=== PATIENT | male | born 1950 | race Caucasian/White ===

== ENCOUNTER 2024-09-18 11:50 | Inpatient (IN) | payer MEDICARE ==
--- NOTE | 2024-09-18 12:03 | ERPHSYRPT ---
- History of Present Illness Time Seen by Provider: 09/18/24 12:03 Source: patient, family Exam Limitations: no limitations Physician History: This is a 74-year-old white male patient arrives by private vehicle from the patient's primary care office, Dr. Hanson. Per Dr. Hanson, the patient was diagnosed as an outpatient with influenza A. However, the patient wanted to go home and over the last week or so he has not been eating well. He is becoming more weak. He is not drinking well. He had low blood pressure at the doctor's office and complains of shortness of breath. He does not have chest pain or abdominal pain. Patient does have a sql engineer, Dr. Hawk Sung. Patient arrives to the emergency department with a room air oxygen saturation level of 96 to 97% and a blood pressure of 85/59 Timing/Duration: day(s) (Several days), worse Cough Quality/Degree: mild, dry cough Possible Cause: occasional episodes Modifying Factors: Improves With: coughing Associated Symptoms: cough, shortness of breath, other (Weakness) Allergies/Adverse Reactions: No Known Drug Allergies Allergy (Unverified 09/18/24 12:07) Travel Risk - International Travel Have you traveled outside of the country in past 3 weeks: No - Emerging Infectious Disease Are you exhibiting symptoms associated with any current EIDs: Yes Symptoms: Cough: New Onset, Shortness of Breath - Review of Systems Constitutional: Weakness Eyes: No Symptoms Ears, Nose, & Throat: No Symptoms Respiratory: Cough, Dyspnea Cardiac: No Symptoms Abdominal/Gastrointestinal: No Symptoms Genitourinary Symptoms: No Symptoms Musculoskeletal: No Symptoms Skin: No Symptoms Neurological: No Symptoms Psychological: No Symptoms Endocrine: No Symptoms Hematologic/Lymphatic: No Symptoms Immunological/Allergic: No Symptoms All Other Systems: Reviewed and Negative - Past Medical History Pertinent Past Medical History: Yes - Nursing Vital Signs Nursing Vital Signs: Initial Vital Signs Temperature 98.8 F 09/18/24 12:00 Pulse Rate 112 H 09/18/24 12:00 Respiratory Rate 22 09/18/24 12:00 Blood Pressure 85/59 09/18/24 12:00 O2 Sat by Pulse Oximetry 96 09/18/24 12:00 Pain Scale Pain Intensity 2 - Physical Exam General Appearance: mild distress, alert, anxiety, obese Eye Exam: PERRL/EOMI, eyes nml inspection Ears, Nose, Throat Exam: normal ENT inspection, dry mucous membranes Neck Exam: normal inspection, non-tender, supple, full range of motion Respiratory Exam: normal breath sounds, lungs clear, airway intact, No chest tenderness, No respiratory distress Cardiovascular Exam: tachycardia Gastrointestinal/Abdomen Exam: soft, normal bowel sounds, No tenderness Rectal Exam: not done Back Exam: normal inspection, normal range of motion, No CVA tenderness, No vertebral tenderness Extremity Exam: normal inspection, normal range of motion, pelvis stable Neurologic Exam: alert, oriented x 3, cooperative, veneer sawyer II-XII nml as tested, sensation nml Skin Exam: normal color, warm, dry Lymphatic Exam: No adenopathy SpO2 Interpretation: normal O2 Delivery: Room Air - Course Nursing assessment & vital signs reviewed: Yes Ordered Tests: Active Orders 24 hr Category Date Time Status EKG-ER Only STAT Care 09/18/24 12:23 Active IV Insertion STAT Care 09/18/24 12:23 Active Pulse Oximetry (ED) STAT Care 09/18/24 12:23 Active CHEST 1 VIEW (PORTABLE) Stat Exams 09/18/24 12:23 Completed BLOOD CULTURE Stat Lab 09/18/24 12:58 Received CBC W DIFF Stat Lab 09/18/24 12:46 Completed CMP Stat Lab 09/18/24 12:46 Completed Lactic Acid Stat Lab 09/18/24 12:50 Completed MAGNESIUM Stat Lab 09/18/24 12:46 Completed MONO SCREEN Stat Lab 09/18/24 12:46 Completed NT PRO BNPII Stat Lab 09/18/24 12:46 Completed TROPONIN Q4H Lab 09/18/24 12:46 Completed TROPONIN Q4H Lab 09/18/24 16:30 Ordered TROPONIN Q4H Lab 09/18/24 20:30 Ordered Medication Summary Generic Name Dose Route Start Last Admin Trade Name Freq PRN Reason Stop Dose Admin Sodium Chloride 1,000 mls @ 100 mls/hr 09/18/24 12:30 09/18/24 13:04 Sodium Chloride 0.9% 1000 Ml IV 10/18/24 12:29 100 mls/hr .Q10H MISSAEL Administration Discontinued Medications Generic Name Dose Route Start Last Admin Trade Name Freq PRN Reason Stop Dose Admin Sodium Chloride Confirm 09/18/24 12:19 Sodium Chloride 0.9% 1000 Ml Administered 09/18/24 12:20 Dose 1,000 mls @ ud .ROUTE .STK-MED ONE Ceftriaxone Sodium 1 gm in 100 mls @ 200 mls/hr 09/18/24 12:58 09/18/24 13:36 Rocephin 1 Gm / 100 Ml Nacl IV 09/18/24 13:27 Infused STAT ONE Infusion Ceftriaxone Sodium Confirm 09/18/24 13:03 Rocephin 1 Gm / 100 Ml Nacl Administered 09/18/24 13:04 Dose 1 gm in 100 mls @ ud IV .STK-MED ONE Lab/Rad Data: Laboratory Result Diagrams 09/18/24 12:46 09/18/24 12:46 Laboratory Results 09/18/24 09/18/24 09/18/24 Range/Units 13:10 12:50 12:46 WBC (4.23-9.07) x10^3/uL RBC (4.63-6.08) x10^6/uL Hgb (13.7-17.5) g/dL Hct (40.1-51.0) % MCV (79.0-92.2) fL MCH (25.7-32.2) pg MCHC (32.3-36.5) g/dL RDW (11.6-14.4) % Plt Count (163-337) x10^3/uL MPV (9.4-12.4) fL Gran % (34.0-67.9) % Immature Gran % (Auto) (0.001-0.429) % Nucleat RBC Rel Count (0.00-0.2) % Eos # (Auto) (0.04-0.54) x10^3/uL Immature Gran # (Auto) (0.001-0.031) x10^3u/L Absolute Lymphs (auto) (1.32-3.57) x10^3/uL Absolute Monos (auto) (0.30-0.82) x10^3/uL Absolute Nucleated RBC (0.00-0.012) x10^3u/L Lymphocytes % (21.8-53.1) % Monocytes % (5.3-12.2) % Eosinophils % (0.8-7.0) % Basophils % (0.2-1.2) % Absolute Granulocytes (1.78-5.38) x10^3/uL Basophils # (0.01-0.08) x10^3/uL Sodium (135-145) mmol/L Potassium (3.5-5.1) mmol/L Chloride (98-107) mmol/L Carbon Dioxide (22-30) mmol/L Anion Gap (5-15) MEQ/L BUN (9-20) mg/dL Creatinine (0.66-1.25) mg/dL Estimated GFR ML/MIN Glucose (74-106) mg/dL Lactic Acid 1.6 (0.4-2.0) Calcium (8.4-10.2) mg/dL Magnesium (1.6-2.3) mg/dL Total Bilirubin (0.2-1.3) mg/dL AST (17-59) U/L ALT (0-50) U/L Alkaline Phosphatase (38-126) U/L Troponin I (0.000-0.033) ng/mL NT-Pro-B Natriuret Pep (<300) pg/mL Serum Total Protein (6.3-8.2) g/dL Albumin (3.5-5.0) g/dL Monoscreen NEGATIVE (NEGATIVE) Influenza Type A Ag POSITIVE A (NEGATIVE) Influenza Type B Ag NEGATIVE (NEGATIVE) RSV (PCR) NEGATIVE (NEGATIVE) SARS-CoV-2 (PCR) NEGATIVE (NEGATIVE) 09/18/24 09/18/24 09/18/24 Range/Units 12:46 12:46 12:46 WBC 18.4 H (4.23-9.07) x10^3/uL RBC 4.79 (4.63-6.08) x10^6/uL Hgb 14.8 (13.7-17.5) g/dL Hct 43.1 (40.1-51.0) % MCV 90.0 (79.0-92.2) fL MCH 30.9 (25.7-32.2) pg MCHC 34.3 (32.3-36.5) g/dL RDW 12.5 (11.6-14.4) % Plt Count 294 (163-337) x10^3/uL MPV 9.4 (9.4-12.4) fL Gran % 83.2 H (34.0-67.9) % Immature Gran % (Auto) 0.7 H (0.001-0.429) % Nucleat RBC Rel Count 0.0 (0.00-0.2) % Eos # (Auto) 0.05 (0.04-0.54) x10^3/uL Immature Gran # (Auto) 0.12 H (0.001-0.031) x10^3u/L Absolute Lymphs (auto) 1.21 L (1.32-3.57) x10^3/uL Absolute Monos (auto) 1.65 H (0.30-0.82) x10^3/uL Absolute Nucleated RBC 0.00 (0.00-0.012) x10^3u/L Lymphocytes % 6.6 L (21.8-53.1) % Monocytes % 9.0 (5.3-12.2) % Eosinophils % 0.3 L (0.8-7.0) % Basophils % 0.2 (0.2-1.2) % Absolute Granulocytes 15.36 H (1.78-5.38) x10^3/uL Basophils # 0.03 (0.01-0.08) x10^3/uL Sodium 133 L (135-145) mmol/L Potassium 5.5 H (3.5-5.1) mmol/L Chloride 105 (98-107) mmol/L Carbon Dioxide 18 L (22-30) mmol/L Anion Gap 15.5 H (5-15) MEQ/L BUN 26 H (9-20) mg/dL Creatinine 1.22 (0.66-1.25) mg/dL Estimated GFR 63.0 ML/MIN Glucose 103 (74-106) mg/dL Lactic Acid (0.4-2.0) Calcium 8.7 (8.4-10.2) mg/dL Magnesium 1.8 (1.6-2.3) mg/dL Total Bilirubin 1.20 (0.2-1.3) mg/dL AST 178 H (17-59) U/L ALT 209 H (0-50) U/L Alkaline Phosphatase 68 (38-126) U/L Troponin I < 0.012 (0.000-0.033) ng/mL NT-Pro-B Natriuret Pep 726 (<300) pg/mL Serum Total Protein 5.9 L (6.3-8.2) g/dL Albumin 3.2 L (3.5-5.0) g/dL Monoscreen (NEGATIVE) Influenza Type A Ag (NEGATIVE) Influenza Type B Ag (NEGATIVE) RSV (PCR) (NEGATIVE) SARS-CoV-2 (PCR) (NEGATIVE) - Progress Progress: re-examined Air Movement: fair Progress Note: 09/18/24 12:53 My medical decision making and the assignment of moderate to high complexity of this patient's medical issue today is based on review of the patient's past medical history, review the patient's medication list, reviewed patient drug allergy list, history present illness and physical findings on examination. The workup in this patient includes placement of intravenous line, infusion of low rate crystalloid, CBC, CMP, troponin level, BNP, twelve-lead EKG, viral swabs, monotest, chest x-ray. Differential diagnosis includes but is not limited to viral illness, pneumonia, anemia, dehydration, urinary tract infection, electrolyte abnormalities, arrhythmia, myocardial infarction, CHF exacerbation 09/18/24 12:57 The chest x-ray was interpreted by the radiologist and I reviewed the impression. The impression states right infrahilar hazy alveolar opacities, possible pneumonitis or pneumonia. 09/18/24 14:32 I interpreted the patient's laboratory data results. Based on the laboratory data results, the patient again test positive for influenza A infection, and has leukocytosis. I spoke with Dr. Márquez, the telehospitalist on at this time. I reviewed the patient history, presenting complaint, physical findings on examination and w orkup results. We will admit this patient on a telemetry bed. We will hydrate this patient. Blood Culture(s) Obtained: Yes Antibiotics given: Yes Discussed with Dr.: Vera Counseled pt/family regarding: lab results, diagnosis, rad results Medical Desision Making - Independent Historian Additional History obtained from: Spouse - Diagnostic Testing Diagnostic test were ordered, analyzed, and reviewed by me: Yes Radiological Interpretation: Reviewed by me, Teleradiologist Report - Risk of complications The pt has a high risk of morbidity or mortality based on: Decision regarding hospitilization or escalation of hosp level of care - Departure Departure Disposition: In-patient Admission Clinical Impression: Influenza A H1N1 infection, Right pulmonary infiltrate on CXR, Leukocytosis, Hypotension Condition: Fair Critical Care Time: Yes Critical Care Time(excluding separately billable procedures): Critical 30-74 mins (50 minutes) Referrals: MYKE MCBRIDE MD [Primary Care Provider] - Follow up/PCP as directed
[2024-09-18] MEDS ORDERED: Sodium Chloride 0.9% 1000 ML 1,000 ML ONE ×2 (12:19→15:42)
--- NOTE | 2024-09-18 12:51 | XRAY ---
Indication: Cough. Comparison: None Portable chest hyperinflated with right infrahilar hazy interstitial alveolar opacities, possible pneumonitis/pneumonia. Remaining heart and left lung unremarkable. Bony thorax intact with osteopenia.
[2024-09-18 12:56] LABS: Absolute Neutrophil Ct (ANC) 15.36 x10^3/uL (1.78-5.38); BASOPHIL % 0.2 % (0.2-1.2); Basophil (Absolute #) 0.03 x10^3/uL (0.01-0.08); Eosinophil % 0.3 % (0.8-7.0); Eosinophil (Absolute #) 0.05 x10^3/uL (0.04-0.54); Hematocrit 43.1 % (40.1-51.0); Hemoglobin 14.8 g/dL (13.7-17.5); IMMATURE GRAN # 0.12 x10^3u/L (0.001-0.031); IMMATURE GRAN % 0.7 % (0.001-0.429); Lymphocyte (Absolute #) 1.21 x10^3/uL (1.32-3.57); Lymphocytes % 6.6 % (21.8-53.1); Mean Corpuscular Hemoglobin 30.9 pg (25.7-32.2); Mean Corpuscular Hgb Concent. 34.3 g/dL (32.3-36.5); Mean Platelet Volume 9.4 fL (9.4-12.4); Monocyte (Absolute #) 1.65 x10^3/uL (0.30-0.82); Neutrophil % 83.2 % (34.0-67.9); Platelet Count 294 x10^3/uL (163-337); Red Blood Count 4.79 x10^6/uL (4.63-6.08); Red Cell Distribution Width 12.5 % (11.6-14.4); White Blood Count 18.4 x10^3/uL (4.23-9.07)
[2024-09-18] MEDS ORDERED: ROCEPHIN 1 GM / 100 ML NaCl 1 GM/100 ML IVPB IV ONE (13:03)
[2024-09-18] MEDS: ROCEPHIN 1 GM / 100 ML NaCl 1 GM/100 ML IVPB IV ONE (13:04)
[2024-09-18] MEDS: Sodium Chloride 0.9% 1000 ML 1,000 ML IV SCH ×3 (13:04→20:40)
[2024-09-18 13:34] LABS: ALBUMIN 3.2 g/dL (3.5-5.0); ANION GAP 15.5 MEQ/L (5-15); BILIRUBIN,TOTAL 1.2 mg/dL (0.2-1.3); Calcium 8.7 mg/dL (8.4-10.2); Creatinine 1 1.22 mg/dL (0.66-1.25); MAGNESIUM 1.8 mg/dL (1.6-2.3); Potassium 5.5 mmol/L (3.5-5.1); Total Protein 5.9 g/dL (6.3-8.2)
[2024-09-18 13:50] LABS: INFLUENZA B NEGATIVE (NEGATIVE); RESPIRATORY SYNCTIAL VIRUS NEGATIVE (NEGATIVE); SARS-CoV-2 Xpert Express NEGATIVE (NEGATIVE)
[2024-09-18 14:27] LABS: INFLUENZA A POSITIVE (NEGATIVE)
--- NOTE | 2024-09-18 16:54 | PCM.HP ---
History of Present Illness - Chief Complaint Chief Complaint: pneumonia, flu A Date: 09/18/24 History of Present Illness: is a 74 year old male with pmhx of CHF, COPD, HTN, CAD, arrhythmia, and daily smoker. Patient arrives by private vehicle from the patient's primary care office, Dr. Gonzalez. Per Dr. Gonzalez, the patient was diagnosed as an outpatient with influenza A. However, the patient wanted to go home and over the last week or so he has not been eating well. He is becoming more weak. He is not drinking well. He had low blood pressure at the doctor's office and complains of shortness of breath. He does not have chest pain or abdominal holli n. Patient does have a account support analyst, Dr. Jim Sung. Patient arrives to the emergency department with a room air oxygen saturation level of 96 to 97% and a blood pressure of 85/59. Bp increasingly worsened in ER and 2LNS gave without much improvement. On the IP unit pt remains hypotensive. IVF stopped d/t significant heart hx?CF. Pt becoming increasingly SOB. Levophed gtt started. CXR shows pneumonia. WBC 18.4, anion gap 15.5, Co2 18. IV antibiotics, duonebs, advair, steriods, started. Lungs sounds are clear but diminished. Liver enzymes elevated. K+ elevated at 5.5 in ER. Rechecked IP. Pt meets sepsis criteria. - Review of Systems Constitutional: No Fever, No Chills Eyes: No Symptoms Ears, Nose, & Throat: No Symptoms Respiratory: No Cough, No Short Of Breath Cardiac: No Chest Pain, No Edema, No Syncope Abdominal/Gastrointestinal: No Abdominal Pain, No Nausea, No Vomiting, No Diarrhea Genitourinary Symptoms: No Dysuria Musculoskeletal: No Back Pain, No Neck Pain Skin: No Rash Neurological: No Dizziness, No Focal Weakness, No Sensory Changes Psychological: No Symptoms Endocrine: No Symptoms Hematologic/Lymphatic: No Symptoms Immunological/Allergic: No Symptoms Medications & Allergies Home Medications: Home Medication List Atorvastatin Calcium 20 mg PO DAILY 09/18/24 [History Confirmed 09/18/24] Carvedilol [Coreg ] 6.25 mg PO BID 09/18/24 [History Confirmed 09/18/24] Fluticasone/Umeclidin/Vilanter [Trelegy Ellipta 100-62.5-25] 1 each IH DAILY 09/18/24 [History Confirmed 09/18/24] Potassium Chloride [Klor-Con 10] 20 meq BID 09/18/24 [History Confirmed ] Rivaroxaban [Xarelto] 20 mg PO DAILY 09/18/24 [History Confirmed 09/18/24] Sacubitril/Valsartan [Entresto 24 mg-26 mg Tablet] 1 ea DAILY 09/18/24 [History Confirmed 09/18/24] Spironolactone 25 mg [Aldactone 25 MG] 25 mg PO DAILY 09/18/24 [History Confirmed 09/18/24] Allergies/Adverse Reactions: Allergies Allergy/AdvReac Type Severity Reaction Status Date / Time No Known Drug Allergies Allergy Unverified 09/18/24 12:07 - Past Medical History Past Medical History: Yes Cardiac History: Arrhythmia, Coronary Artery Disease, Hypertension Respiratory History: CHF, COPD Comment: a fib - Past Surgical History Past Surgical History: Yes GI Surgical History: Other Musculskeletal Surgical Hx: Orthopedic Surgery Other Surgical History: colon bypass ,elbow surg ,eye surg Significant Family History: heart disease - Social History Smoking Status: Current every day smoker Alcohol: None Drug Use: none - Social Determinants of Health Will the patient participate in the screening: Declined to provide - Physical Exam Vital Signs: Vital Signs - 24 hr Temp Pulse Resp BP BP Pulse Ox 09/18/24 16:20 38 H 83/47 98 09/18/24 16:10 36 H 98/50 98 09/18/24 16:00 22 92/42 88 L 09/18/24 15:50 22 76/51 98 09/18/24 15:40 29 H 78/47 98 09/18/24 15:30 25 H 98 09/18/24 15:20 25 H 88/49 94 L 09/18/24 15:10 25 H 76/47 96 09/18/24 15:08 102 H 19 68/46 98 09/18/24 15:04 107 H 19 77/48 96 09/18/24 15:02 96 H 25 H 72/47 95 09/18/24 15:00 99 H 21 73/39 79 L 09/18/24 14:50 94 H 20 72/49 77 L 09/18/24 14:40 105 H 23 94/67 95 09/18/24 14:30 95 H 29 H 89/55 96 09/18/24 14:20 98 H 26 H 81/61 96 09/18/24 14:10 126 H 22 86/54 98 09/18/24 14:00 109 H 23 91/55 97 09/18/24 13:50 108 H 32 H 87/63 09/18/24 13:41 103 H 30 H 66/33 95 09/18/24 13:30 78/57 09/18/24 13:20 102 H 36 H 85/60 95 09/18/24 13:10 105 H 25 H 82/65 98 09/18/24 13:01 98 H 37 H 85/55 98 09/18/24 13:00 105 H 24 99 09/18/24 12:53 114 H 32 H 96 09/18/24 12:33 96 09/18/24 12:31 101 H 35 H 96/62 95 09/18/24 12:00 98.8 F 112 H 22 85/59 96 General Appearance: no apparent distress, alert Neurologic Exam: alert, oriented x 3, cooperative, normal mood/affect, nml cerebellar function, nml station & gait, sensation nml, No motor deficits Eye Exam: PERRL/EOMI, eyes nml inspection Ears, Nose, Throat Exam: normal ENT inspection, TMs normal, pharynx normal, moist mucous membranes Neck Exam: normal inspection, non-tender, supple, full range of motion Respiratory Exam: normal breath sounds, lungs clear, No respiratory distress Cardiovascular Exam: regular rate/rhythm, normal heart sounds, normal peripheral pulses Gastrointestinal/Abdomen Exam: soft, normal bowel sounds, No tenderness, No mass Back Exam: normal inspection, normal range of motion, No CVA tenderness, No vertebral tenderness Extremity Exam: normal inspection, normal range of motion, pelvis stable Skin Exam: normal color, warm, dry, No rash Lymphatic Exam: No adenopathy Results - Labs Lab/Micro Results: Lab Results-Last 24 Hours 09/18/24 09/18/24 09/18/24 Range/Units 12:46 12:46 12:46 WBC 18.4 H (4.23-9.07) x10^3/uL RBC 4.79 (4.63-6.08) x10^6/uL Hgb 14.8 (13.7-17.5) g/dL Hct 43.1 (40.1-51.0) % MCV 90.0 (79.0-92.2) fL MCH 30.9 (25.7-32.2) pg MCHC 34.3 (32.3-36.5) g/dL RDW 12.5 (11.6-14.4) % Plt Count 294 (163-337) x10^3/uL MPV 9.4 (9.4-12.4) fL Gran % 83.2 H (34.0-67.9) % Immature Gran % (Auto) 0.7 H (0.001-0.429) % Nucleat RBC Rel Count 0.0 (0.00-0.2) % Eos # (Auto) 0.05 (0.04-0.54) x10^3/uL Immature Gran # (Auto) 0.12 H (0.001-0.031) x10^3u/L Absolute Lymphs (auto) 1.21 L (1.32-3.57) x10^3/uL Absolute Monos (auto) 1.65 H (0.30-0.82) x10^3/uL Absolute Nucleated RBC 0.00 (0.00-0.012) x10^3u/L Lymphocytes % 6.6 L (21.8-53.1) % Monocytes % 9.0 (5.3-12.2) % Eosinophils % 0.3 L (0.8-7.0) % Basophils % 0.2 (0.2-1.2) % Absolute Granulocytes 15.36 H (1.78-5.38) x10^3/uL Basophils # 0.03 (0.01-0.08) x10^3/uL Sodium 133 L (135-145) mmol/L Potassium 5.5 H (3.5-5.1) mmol/L Chloride 105 (98-107) mmol/L Carbon Dioxide 18 L (22-30) mmol/L Anion Gap 15.5 H (5-15) MEQ/L BUN 26 H (9-20) mg/dL Creatinine 1.22 (0.66-1.25) mg/dL Estimated GFR 63.0 ML/MIN Glucose 103 (74-106) mg/dL Lactic Acid (0.4-2.0) Calcium 8.7 (8.4-10.2) mg/dL Magnesium 1.8 (1.6-2.3) mg/dL Total Bilirubin 1.20 (0.2-1.3) mg/dL AST 178 H (17-59) U/L ALT 209 H (0-50) U/L Alkaline Phosphatase 68 (38-126) U/L Troponin I < 0.012 (0.000-0.033) ng/mL NT-Pro-B Natriuret Pep 726 (<300) pg/mL Serum Total Protein 5.9 L (6.3-8.2) g/dL Albumin 3.2 L (3.5-5.0) g/dL Monoscreen (NEGATIVE) Influenza Type A Ag (NEGATIVE) Influenza Type B Ag (NEGATIVE) RSV (PCR) (NEGATIVE) SARS-CoV-2 (PCR) (NEGATIVE) 09/18/24 09/18/24 09/18/24 Range/Units 12:46 12:50 13:10 WBC (4.23-9.07) x10^3/uL RBC (4.63-6.08) x10^6/uL Hgb (13.7-17.5) g/dL Hct (40.1-51.0) % MCV (79.0-92.2) fL MCH (25.7-32.2) pg MCHC (32.3-36.5) g/dL RDW (11.6-14.4) % Plt Count (163-337) x10^3/uL MPV (9.4-12.4) fL Gran % (34.0-67.9) % Immature Gran % (Auto) (0.001-0.429) % Nucleat RBC Rel Count (0.00-0.2) % Eos # (Auto) (0.04-0.54) x10^3/uL Immature Gran # (Auto) (0.001-0.031) x10^3u/L Absolute Lymphs (auto) (1.32-3.57) x10^3/uL Absolute Monos (auto) (0.30-0.82) x10^3/uL Absolute Nucleated RBC (0.00-0.012) x10^3u/L Lymphocytes % (21.8-53.1) % Monocytes % (5.3-12.2) % Eosinophils % (0.8-7.0) % Basophils % (0.2-1.2) % Absolute Granulocytes (1.78-5.38) x10^3/uL Basophils # (0.01-0.08) x10^3/uL Sodium (135-145) mmol/L Potassium (3.5-5.1) mmol/L Chloride (98-107) mmol/L Carbon Dioxide (22-30) mmol/L Anion Gap (5-15) MEQ/L BUN (9-20) mg/dL Creatinine (0.66-1.25) mg/dL Estimated GFR ML/MIN Glucose (74-106) mg/dL Lactic Acid 1.6 (0.4-2.0) Calcium (8.4-10.2) mg/dL Magnesium (1.6-2.3) mg/dL Total Bilirubin (0.2-1.3) mg/dL AST (17-59) U/L ALT (0-50) U/L Alkaline Phosphatase (38-126) U/L Troponin I (0.000-0.033) ng/mL NT-Pro-B Natriuret Pep (<300) pg/mL Serum Total Protein (6.3-8.2) g/dL Albumin (3.5-5.0) g/dL Monoscreen NEGATIVE (NEGATIVE) Influenza Type A Ag POSITIVE A (NEGATIVE) Influenza Type B Ag NEGATIVE (NEGATIVE) RSV (PCR) NEGATIVE (NEGATIVE) SARS-CoV-2 (PCR) NEGATIVE (NEGATIVE) - Radiology Impressions Radiology Exams & Impressions: Radiology Procedures Category Date Time Status CHEST 1 VIEW (PORTABLE) Stat Exams 09/18/24 12:23 Completed Assessment/Plan (1) Sepsis Current Visit: Yes Status: Acute Assessment & Plan: - RR> 20, HR > 90, WBC> 12, PCO2 < 32 - 2lNS gave in ER- Pt has CHF hx - lactate acid 1.6 - hypotension - + pneumonia and Flu A - BC X2 pending - Levophed Gtt - Tele - ICU (2) Pneumonia Current Visit: Yes Status: Acute Assessment & Plan: - CXR: Portable chest hyperinflated with right infrahilar hazy interstitial alveolar opacities, possible pneumonitis/pneumonia. Remaining heart and left lung unremarkable. Bony thorax intact with osteopenia. - Ceftriaxone started in ER - Ceftriaxone, azithromycin, duonebs, advair, steroids - CBC, CMP reviewed - BC x2 - O2 98% - WBC 18.4 Code(s): J18.9 - PNEUMONIA, UNSPECIFIED ORGANISM (3) Hypotension Current Visit: Yes Status: Acute Assessment & Plan: - BP remains low on admission - ICU tele - Pt now on 3rd bag of IVF- watch for fluid overload as he has CHF. - fluids stopped - Home BP meds held. - 2:2 sepsis from pneumonia - Persistent hypotension despite IV fluids - started Levophed gtt Code(s): I95.9 - HYPOTENSION, UNSPECIFIED (4) Influenza A H1N1 infection Current Visit: Yes Status: Acute Assessment & Plan: - tamiflu not ordered as it has been over 1 week now with sxs Code(s): J10.1 - FLU DUE TO OTH IDENT INFLUENZA VIRUS W OTH RESP MANIFEST (5) Transaminitis Current Visit: Yes Status: Acute Assessment & Plan: - AST 178, ALT 209 - IVF- stop - Likely 2:2 CHF Code(s): R74.01 - ELEVATION OF LEVELS OF LIVER TRANSAMINASE LEVELS (6) Hyperkalemia Current Visit: Yes Status: Acute Assessment & Plan: - K+ 5.5 in ER - IVF gave in ER- stopped - recheck IP - 4.9 trending down - tele - oral home dose of K+ held Code(s): E87.5 - HYPERKALEMIA (7) Dehydration Current Visit: Yes Status: Acute Assessment & Plan: -anion gap 15.5- trend - IVF NS @ 100ml/hr- stopped IP - 2 L NS IVF gave in ER- 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
[2024-09-18] MEDS ORDERED: FLUTICASONE-SALMETEROL 250-50 IH ONE (17:39)
[2024-09-18 17:40] LABS: MAGNESIUM 1.7 mg/dL (1.6-2.3); Potassium 4.9 mmol/L (3.5-5.1)
[2024-09-18] MEDS: DUONEB 0.5-3 MG/3 ml Neb IH SCH (17:43)
[2024-09-18] MEDS: Zithromax 500 MG/ 250 ML NaCl Premix 500 MG/250 ML IVPB IV SCH (17:51)
[2024-09-18] MEDS: Nicoderm CQ 21 MG TOP SCH (17:52)
[2024-09-18] MEDS: Protonix 20MG Tablet PO SCH (17:52)
[2024-09-18] MEDS: NOREPINEPHRINE 8 MG/250 ML-D5W 8 MG/250 ML PLAST..BAG IV PRN (17:53)
[2024-09-18] MEDS ORDERED: Advair Hfa 115/21 Common canister IH SCH (19:00)
[2024-09-18] MEDS ORDERED: solu-MEDROL ONE (20:51)
[2024-09-18] MEDS ORDERED: Sterile H2O 10 ml IJ ONE (20:51)
[2024-09-18] MEDS: solu-MEDROL 40 MG, Sterile H2O 10 ml 1 ML IV SCH (20:57)
[2024-09-18] MEDS: XARELTO 10 MG TABLET PO SCH (20:57)
[2024-09-18] MEDS ORDERED: Tamiflu 75MG Capsule PO SCH (22:00)
[2024-09-19 04:42] LABS: Absolute Neutrophil Ct (ANC) 14.07 x10^3/uL (1.78-5.38); BASOPHIL % 0.1 % (0.2-1.2); Basophil (Absolute #) 0.02 x10^3/uL (0.01-0.08); Eosinophil % 0.1 % (0.8-7.0); Eosinophil (Absolute #) 0.01 x10^3/uL (0.04-0.54); Hematocrit 42.8 % (40.1-51.0); Hemoglobin 14.9 g/dL (13.7-17.5); IMMATURE GRAN # 0.14 x10^3u/L (0.001-0.031); IMMATURE GRAN % 0.9 % (0.001-0.429); Lymphocyte (Absolute #) 0.74 x10^3/uL (1.32-3.57); Lymphocytes % 4.8 % (21.8-53.1); Mean Cell Volume 89.9 fL (79.0-92.2); Mean Corpuscular Hemoglobin 31.3 pg (25.7-32.2); Mean Corpuscular Hgb Concent. 34.8 g/dL (32.3-36.5); Mean Platelet Volume 9.6 fL (9.4-12.4); Monocyte (Absolute #) 0.29 x10^3/uL (0.30-0.82); Monocytes % 1.9 % (5.3-12.2); Neutrophil % 92.2 % (34.0-67.9); Platelet Count 362 x10^3/uL (163-337); Red Blood Count 4.76 x10^6/uL (4.63-6.08); Red Cell Distribution Width 12.6 % (11.6-14.4); White Blood Count 15.3 x10^3/uL (4.23-9.07)
[2024-09-19 05:02] LABS: ALBUMIN 2.8 g/dL (3.5-5.0); ANION GAP 15.8 MEQ/L (5-15); BILIRUBIN,TOTAL 1.1 mg/dL (0.2-1.3); Calcium 8.3 mg/dL (8.4-10.2); Creatinine 1 0.86 mg/dL (0.66-1.25); Total Protein 5.5 g/dL (6.3-8.2)
[2024-09-19] MEDS: Sodium Bicarbonate 50 MEQ/50 ML VIAL*** 150 MEQ in Dextrose 5%/Water IV Soln. 1000 ML 1... IV SCH (08:55)
[2024-09-19] MEDS: ROCEPHIN 1 GM / 100 ML NaCl 1 GM/100 ML IVPB IV SCH (09:03)
[2024-09-19] MEDS: ENTRESTO 49 MG-51 MG TABLET PO SCH (09:05)
[2024-09-19] MEDS ORDERED: NON-FORMULARY ITEM (Fluticasone/Umeclidin/Vilanter [Trelegy Ellipta 100-62.5-25] 1 EACH Bl IH SCH (10:00)
[2024-09-19] MEDS ORDERED: XARELTO 10 MG TABLET PO SCH (10:00)
[2024-09-19] MEDS: PATIENT OWN MEDICATION IH SCH (10:28)
--- NOTE | 2024-09-19 12:43 | PCM.NOTE ---
Date and Time: 09/19/24 1240 Subjective Assessment: 09/18/24 is a 74 year old male with pmhx of CHF, COPD, HTN, CAD, arrhythmia, and daily smoker. Patient arrives by private vehicle from the patient's primary care office, Dr. Gonzalez. Per Dr. Gonzalez, the patient was diagnosed as an outpatient with influenza A. However, the patient wanted to go home and over the last week or so he has not been eating well. He is becoming more weak. He is not drinking well. He had low blood pressure at the doctor's office and complains of shortness of breath. He does not have chest pain or abdominal pain. Patient does have a welcome desk agent, Dr. Jim Sung. Patient arrives to the emergency department with a room air oxygen saturation level of 96 to 97% and a blood pressure of 85/59. Bp increasingly worsened in ER and 2LNS gave without much improvement. On the IP unit pt remains hypotensive. IVF stopped d/t significant heart hx?CF. Pt becoming increasingly SOB. Levophed gtt started. CXR shows pneumonia. WBC 18.4, anion gap 15.5, Co2 18. IV antibiotics, duonebs, advair, steriods, started. Lungs sounds are clear but diminished. Liver enzymes elevated. K+ elevated at 5.5 in ER. Rechecked IP. Pt meets sepsis criteria. 09/19/24 Pt resting in bed. He remains on Levophed this morning. CO2 13- bicarb gtt started. Continue IV antibiotics, duonebs, advair, steriods for pneumonia. He is RA 96%. BC X2 pending. Advair d/c'd last night as pt wants to use his home inhaler of Trelegy- to bring in to use. Pt denies CP, abd. pain, N/V. He states he has had diarrhea and probiotics started. - Review of Systems Constitutional: Malaise, Weakness, No Fever, No Chills Eyes: No Symptoms Ears, Nose, & Throat: No Symptoms Respiratory: No Cough, No Short Of Breath Cardiac: No Chest Pain, No Edema, No Syncope Abdominal/Gastrointestinal: No Abdominal Pain, No Nausea, No Vomiting, No Diarrhea Genitourinary Symptoms: No Dysuria Musculoskeletal: No Back Pain, No Neck Pain Skin: No Rash Neurological: No Dizziness, No Focal Weakness, No Sensory Changes Psychological: No Symptoms Endocrine: No Symptoms Hematologic/Lymphatic: No Symptoms Immunological/Allergic: No Symptoms Objective Exam General Appearance: no apparent distress, alert, obese Neurologic Exam: alert, oriented x 3, cooperative, normal mood/affect, nml c erebellar function, sensation nml, No motor deficits Skin Exam: normal color, warm, dry Eye Exam: PERRL, EOMI, eyes nml inspection Ears, Nose, Throat Exam: normal ENT inspection, pharynx normal, moist mucous membranes Neck Exam: normal inspection, non-tender, supple, full range of motion Respiratory Exam: normal breath sounds, lungs clear, No respiratory distress Cardiovascular Exam: regular rate/rhythm, normal heart sounds Gastrointestinal/Abdomen Exam: soft, distention, No tenderness, No mass Extremity Exam: normal inspection, normal range of motion Back Exam: normal inspection, normal range of motion, No CVA tenderness, No vertebral tenderness Male Genitalia Exam: deferred Rectal Exam: deferred Objective Data Vital Signs: Vital Signs - 24 hr Temp Pulse Resp BP BP Pulse Ox 09/19/24 12:00 89 09/19/24 11:36 89 18 98 09/19/24 11:31 120 H 18 113/71 09/19/24 11:10 90 19 126/69 09/19/24 11:02 97 H 24 09/19/24 10:31 86 25 H 147/77 09/19/24 10:01 98 H 28 H 122/86 09/19/24 09:31 98 H 25 H 145/102 09/19/24 09:01 115 H 24 132/76 09/19/24 08:50 100 H 09/19/24 08:31 100 H 20 134/80 09/19/24 08:01 91 H 34 H 102/74 98 09/19/24 07:39 88 16 97 09/19/24 07:31 98 H 16 136/86 100 09/19/24 07:00 81 23 120/97 98 09/19/24 06:31 79 19 115/82 97 09/19/24 06:00 81 16 116/84 96 09/19/24 05:55 81 20 114/83 98 09/19/24 05:01 79 20 117/90 98 09/19/24 04:30 80 19 130/80 98 09/19/24 04:00 96.4 F 84 24 126/84 98 09/19/24 03:32 75 20 127/63 97 09/19/24 03:00 91 H 19 104/75 97 09/19/24 02:30 79 26 H 105/68 95 09/19/24 02:00 82 28 H 110/67 94 L 09/19/24 01:30 85 28 H 103/64 94 L 09/19/24 01:00 81 26 H 96/66 93 L 09/19/24 00:30 81 30 H 103/71 93 L 09/19/24 00:01 97.6 F 97 H 26 H 115/66 94 L 09/18/24 23:40 91 H 09/18/24 23:32 92 H 29 H 109/74 96 09/18/24 23:00 90 26 H 90/64 94 L 09/18/24 22:30 87 33 H 104/66 94 L 09/18/24 22:00 91 H 26 H 102/76 94 L 09/18/24 21:30 84 24 119/75 94 L 09/18/24 21:01 99 H 22 105/79 98 09/18/24 20:30 97 H 16 105/62 100 09/18/24 20:00 98 H 32 H 97/78 09/18/24 19:27 97.7 F 108 H 34 H 114/75 95 09/18/24 19:25 98 H 09/18/24 19:01 100 H 19 82/52 97 09/18/24 18:32 99.1 F 90 22 93/38 96 09/18/24 18:01 99.1 F 100 H 18 84/63 97 09/18/24 17:52 85 36 H 96 09/18/24 17:30 100 H 33 H 78/56 98 09/18/24 17:23 96 09/18/24 17:17 93 H 22 79/44 97 09/18/24 17:00 99.1 F 78 25 H 85/51 96 09/18/24 16:51 98 H 21 85/51 99 09/18/24 16:50 94 H 26 H 97 09/18/24 16:48 97 09/18/24 16:31 84/52 09/18/24 16:20 38 H 83/47 98 09/18/24 16:10 36 H 98/50 98 09/18/24 16:00 22 92/42 88 L 09/18/24 15:50 22 76/51 98 09/18/24 15:40 29 H 78/47 98 09/18/24 15:30 25 H 98 09/18/24 15:20 25 H 88/49 94 L 09/18/24 15:10 25 H 76/47 96 09/18/24 15:08 102 H 19 68/46 98 09/18/24 15:04 107 H 19 77/48 96 09/18/24 15:02 96 H 25 H 72/47 95 09/18/24 15:00 99 H 21 73/39 79 L 09/18/24 14:50 94 H 20 72/49 77 L 09/18/24 14:40 105 H 23 94/67 95 09/18/24 14:30 95 H 29 H 89/55 96 09/18/24 14:20 98 H 26 H 81/61 96 09/18/24 14:10 126 H 22 86/54 98 09/18/24 14:00 109 H 23 91/55 97 09/18/24 13:50 108 H 32 H 87/63 09/18/24 13:41 103 H 30 H 66/33 95 09/18/24 13:30 78/57 09/18/24 13:20 102 H 36 H 85/60 95 09/18/24 13:10 105 H 25 H 82/65 98 09/18/24 13:01 98 H 37 H 85/55 98 09/18/24 13:00 105 H 24 99 09/18/24 12:53 114 H 32 H 96 Pain Assessment - Last Documented Pain Intensity 0 Intake and Output: Intake & Output 09/17/24 09/18/24 09/19/24 09/20/24 11:59 11:59 11:59 11:59 Intake Total 1513 Output Total 475 Balance 1038 Weight 92.4 kg Lab Results: Lab Results-Last 24 Hours 09/18/24 09/18/24 09/18/24 Range/Units 12:46 12:46 12:46 WBC 18.4 H (4.23-9.07) x10^3/uL RBC 4.79 (4.63-6.08) x10^6/uL Hgb 14.8 (13.7-17.5) g/dL Hct 43.1 (40.1-51.0) % MCV 90.0 (79.0-92.2) fL MCH 30.9 (25.7-32.2) pg MCHC 34.3 (32.3-36.5) g/dL RDW 12.5 (11.6-14.4) % Plt Count 294 (163-337) x10^3/uL MPV 9.4 (9.4-12.4) fL Gran % 83.2 H (34.0-67.9) % Immature Gran % (Auto) 0.7 H (0.001-0.429) % Nucleat RBC Rel Count 0.0 (0.00-0.2) % Eos # (Auto) 0.05 (0.04-0.54) x10^3/uL Immature Gran # (Auto) 0.12 H (0.001-0.031) x10^3u/L Absolute Lymphs (auto) 1.21 L (1.32-3.57) x10^3/uL Absolute Monos (auto) 1.65 H (0.30-0.82) x10^3/uL Absolute Nucleated RBC 0.00 (0.00-0.012) x10^3u/L Lymphocytes % 6.6 L (21.8-53.1) % Monocytes % 9.0 (5.3-12.2) % Eosinophils % 0.3 L (0.8-7.0) % Basophils % 0.2 (0.2-1.2) % Absolute Granulocytes 15.36 H (1.78-5.38) x10^3/uL Basophils # 0.03 (0.01-0.08) x10^3/uL Sodium 133 L (135-145) mmol/L Potassium 5.5 H (3.5-5.1) mmol/L Chloride 105 (98-107) mmol/L Carbon Dioxide 18 L (22-30) mmol/L Anion Gap 15.5 H (5-15) MEQ/L BUN 26 H (9-20) mg/dL Creatinine 1.22 (0.66-1.25) mg/dL Estimated GFR 63.0 ML/MIN Glucose 103 (74-106) mg/dL Lactic Acid (0.4-2.0) Calcium 8.7 (8.4-10.2) mg/dL Magnesium 1.8 (1.6-2.3) mg/dL Total Bilirubin 1.20 (0.2-1.3) mg/dL AST 178 H (17-59) U/L ALT 209 H (0-50) U/L Alkaline Phosphatase 68 (38-126) U/L Troponin I < 0.012 (0.000-0.033) ng/mL NT-Pro-B Natriuret Pep 726 (<300) pg/mL Serum Total Protein 5.9 L (6.3-8.2) g/dL Albumin 3.2 L (3.5-5.0) g/dL Monoscreen (NEGATIVE) Influenza Type A Ag (NEGATIVE) Influenza Type B Ag (NEGATIVE) RSV (PCR) (NEGATIVE) SARS-CoV-2 (PCR) (NEGATIVE) 09/18/24 09/18/24 09/18/24 Range/Units 12:46 12:50 13:10 WBC (4.23-9.07) x10^3/uL RBC (4.63-6.08) x10^6/uL Hgb (13.7-17.5) g/dL Hct (40.1-51.0) % MCV (79.0-92.2) fL MCH (25.7-32.2) pg MCHC (32.3-36.5) g/dL RDW (11.6-14.4) % Plt Count (163-337) x10^3/uL MPV (9.4-12.4) fL Gran % (34.0-67.9) % Immature Gran % (Auto) (0.001-0.429) % Nucleat RBC Rel Count (0.00-0.2) % Eos # (Auto) (0.04-0.54) x10^3/uL Immature Gran # (Auto) (0.001-0.031) x10^3u/L Absolute Lymphs (auto) (1.32-3.57) x10^3/uL Absolute Monos (auto) (0.30-0.82) x10^3/uL Absolute Nucleated RBC (0.00-0.012) x10^3u/L Lymphocytes % (21.8-53.1) % Monocytes % (5.3-12.2) % Eosinophils % (0.8-7.0) % Basophils % (0.2-1.2) % Absolute Granulocytes (1.78-5.38) x10^3/uL Basophils # (0.01-0.08) x10^3/uL Sodium (135-145) mmol/L Potassium (3.5-5.1) mmol/L Chloride (98-107) mmol/L Carbon Dioxide (22-30) mmol/L Anion Gap (5-15) MEQ/L BUN (9-20) mg/dL Creatinine (0.66-1.25) mg/dL Estimated GFR ML/MIN Glucose (74-106) mg/dL Lactic Acid 1.6 (0.4-2.0) Calcium (8.4-10.2) mg/dL Magnesium (1.6-2.3) mg/dL Total Bilirubin (0.2-1.3) mg/dL AST (17-59) U/L ALT (0-50) U/L Alkaline Phosphatase (38-126) U/L Troponin I (0.000-0.033) ng/mL NT-Pro-B Natriuret Pep (<300) pg/mL Serum Total Protein (6.3-8.2) g/dL Albumin (3.5-5.0) g/dL Monoscreen NEGATIVE (NEGATIVE) Influenza Type A Ag POSITIVE A (NEGATIVE) Influenza Type B Ag NEGATIVE (NEGATIVE) RSV (PCR) NEGATIVE (NEGATIVE) SARS-CoV-2 (PCR) NEGATIVE (NEGATIVE) 09/18/24 09/18/24 09/19/24 Range/Units 16:30 16:30 04:36 WBC 15.3 H (4.23-9.07) x10^3/uL RBC 4.76 (4.63-6.08) x10^6/uL Hgb 14.9 (13.7-17.5) g/dL Hct 42.8 (40.1-51.0) % MCV 89.9 (79.0-92.2) fL MCH 31.3 (25.7-32.2) pg MCHC 34.8 (32.3-36.5) g/dL RDW 12.6 (11.6-14.4) % Plt Count 362 H (163-337) x10^3/uL MPV 9.6 (9.4-12.4) fL Gran % 92.2 H (34.0-67.9) % Immature Gran % (Auto) 0.9 H (0.001-0.429) % Nucleat RBC Rel Count 0.0 (0.00-0.2) % Eos # (Auto) 0.01 L (0.04-0.54) x10^3/uL Immature Gran # (Auto) 0.14 H (0.001-0.031) x10^3u/L Absolute Lymphs (auto) 0.74 L (1.32-3.57) x10^3/uL Absolute Monos (auto) 0.29 L (0.30-0.82) x10^3/uL Absolute Nucleated RBC 0.00 (0.00-0.012) x10^3u/L Lymphocytes % 4.8 L (21.8-53.1) % Monocytes % 1.9 L (5.3-12.2) % Eosinophils % 0.1 L (0.8-7.0) % Basophils % 0.1 L (0.2-1.2) % Absolute Granulocytes 14.07 H (1.78-5.38) x10^3/uL Basophils # 0.02 (0.01-0.08) x10^3/uL Sodium (135-145) mmol/L Potassium 4.9 (3.5-5.1) mmol/L Chloride (98-107) mmol/L Carbon Dioxide (22-30) mmol/L Anion Gap (5-15) MEQ/L BUN (9-20) mg/dL Creatinine (0.66-1.25) mg/dL Estimated GFR ML/MIN Glucose (74-106) mg/dL Lactic Acid (0.4-2.0) Calcium (8.4-10.2) mg/dL Magnesium 1.7 (1.6-2.3) mg/dL Total Bilirubin (0.2-1.3) mg/dL AST (17-59) U/L ALT (0-50) U/L Alkaline Phosphatase (38-126) U/L Troponin I < 0.012 (0.000-0.033) ng/mL NT-Pro-B Natriuret Pep (<300) pg/mL Serum Total Protein (6.3-8.2) g/dL Albumin (3.5-5.0) g/dL Monoscreen (NEGATIVE) Influenza Type A Ag (NEGATIVE) Influenza Type B Ag (NEGATIVE) RSV (PCR) (NEGATIVE) SARS-CoV-2 (PCR) (NEGATIVE) 09/19/24 Range/Units 04:36 WBC (4.23-9.07) x10^3/uL RBC (4.63-6.08) x10^6/uL Hgb (13.7-17.5) g/dL Hct (40.1-51.0) % MCV (79.0-92.2) fL MCH (25.7-32.2) pg MCHC (32.3-36.5) g/dL RDW (11.6-14.4) % Plt Count (163-337) x10^3/uL MPV (9.4-12.4) fL Gran % (34.0-67.9) % Immature Gran % (Auto) (0.001-0.429) % Nucleat RBC Rel Count (0.00-0.2) % Eos # (Auto) (0.04-0.54) x10^3/uL Immature Gran # (Auto) (0.001-0.031) x10^3u/L Absolute Lymphs (auto) (1.32-3.57) x10^3/uL Absolute Monos (auto) (0.30-0.82) x10^3/uL Absolute Nucleated RBC (0.00-0.012) x10^3u/L Lymphocytes % (21.8-53.1) % Monocytes % (5.3-12.2) % Eosinophils % (0.8-7.0) % Basophils % (0.2-1.2) % Absolute Granulocytes (1.78-5.38) x10^3/uL Basophils # (0.01-0.08) x10^3/uL Sodium 133 L (135-145) mmol/L Potassium 5.0 (3.5-5.1) mmol/L Chloride 108 H (98-107) mmol/L Carbon Dioxide 13 L* (22-30) mmol/L Anion Gap 15.8 H (5-15) MEQ/L BUN 21 H (9-20) mg/dL Creatinine 0.86 (0.66-1.25) mg/dL Estimated GFR 92.0 ML/MIN Glucose 179 H (74-106) mg/dL Lactic Acid (0.4-2.0) Calcium 8.3 L (8.4-10.2) mg/dL Magnesium (1.6-2.3) mg/dL Total Bilirubin 1.10 (0.2-1.3) mg/dL AST 142 H (17-59) U/L ALT 210 H (0-50) U/L Alkaline Phosphatase 63 (38-126) U/L Troponin I (0.000-0.033) ng/mL NT-Pro-B Natriuret Pep 1140 (<300) pg/mL Serum Total Protein 5.5 L (6.3-8.2) g/dL Albumin 2.8 L (3.5-5.0) g/dL Monoscreen (NEGATIVE) Influenza Type A Ag (NEGATIVE) Influenza Type B Ag (NEGATIVE) RSV (PCR) (NEGATIVE) SARS-CoV-2 (PCR) (NEGATIVE) Radiology Exams: Radiology Procedures Category Date Time Status CHEST 1 VIEW (PORTABLE) Stat Exams 09/18/24 12:23 Completed Assessment/Plan (1) Sepsis Current Visit: Yes Status: Acute (2) Pneumonia Current Visit: Yes Status: Acute Code(s): J18.9 - PNEUMONIA, UNSPECIFIED ORGANISM (3) Hypotension Current Visit: Yes Status: Acute Code(s): I95.9 - HYPOTENSION, UNSPECIFIED (4) Influenza A H1N1 infection Current Visit: Yes Status: Acute Code(s): J10.1 - FLU DUE TO OTH IDENT INFLUENZA VIRUS W OTH RESP MANIFEST (5) Transaminitis Current Visit: Yes Status: Acute Code(s): R74.01 - ELEVATION OF LEVELS OF LIVER TRANSAMINASE LEVELS (6) Hyperkalemia Current Visit: Yes Status: Acute Code(s): E87.5 - HYPERKALEMIA (7) Dehydration Current Visit: Yes Status: Acute Code(s): E86.0 - DEHYDRATION (8) Metabolic acidosis Current Visit: Yes Status: Acute Code(s): E87.20 - ACIDOSIS, UNSPECIFIED (9) CHF (congestive heart failure) Current Visit: Yes Status: Chronic Assessment & Plan: (1) Sepsis Current Visit: Yes Status: Acute Assessment & Plan: - RR> 20, HR > 90, WBC> 12, PCO2 < 32 - 2lNS gave in ER- Pt has CHF hx - lactate acid 1.6 - hypotension - + pneumonia and Flu A - BC X2 pending - Levophed Gtt - Tele - ICU (2) Pneumonia Current Visit: Yes Status: Acute Assessment & Plan: - CXR: Portable chest hyperinflated with right infrahilar hazy interstitial alveolar opacities, possible pneumonitis/pneumonia. Remaining heart and left lung unremarkable. Bony thorax intact with osteopenia. - Ceftriaxone started in ER - Ceftriaxone, azithromycin, duonebs, advair, steroids - CBC, CMP reviewed - BC x2 - O2 98% - WBC 18.4 / - WBC 15.3- improved - CBC, CMP reviewed - Advair d/c'd and to bring in Trelegy inhaler - RA 96% Code(s): J18.9 - PNEUMONIA, UNSPECIFIED ORGANISM (3) Hypotension Current Visit: Yes Status: Acute Assessment & Plan: - BP remains low on admission - ICU tele - Pt now on 3rd bag of IVF- watch for fluid overload as he has CHF. - fluids stopped - Home BP meds held. - 2:2 sepsis from pneumonia - Persistent hypotension despite IV fluids - started Levophed gtt 09/19 - Continue Levophed gtt Code(s): I95.9 - HYPOTENSION, UNSPECIFIED (4) Influenza A H1N1 infection Current Visit: Yes Status: Acute Assessment & Plan: - tamiflu not ordered as it has been over 1 week now with sxs Code(s): J10.1 - FLU DUE TO OTH IDENT INFLUENZA VIRUS W OTH RESP MANIFEST (5) Transaminitis Current Visit: Yes Status: Acute Assessment & Plan: - AST 178, ALT 209 - IVF- stop - Likely 2:2 CHF / - AST 109, ALT 197- improved Code(s): R74.01 - ELEVATION OF LEVELS OF LIVER TRANSAMINASE LEVELS (6) Hyperkalemia Current Visit: Yes Status: Acute Assessment & Plan: - K+ 5.5 in ER - IVF gave in ER- stopped - recheck IP - 4.9 trending down - tele - oral home dose of K+ held 09/19 - resolved Code(s): E87.5 - HYPERKALEMIA (7) Dehydration Current Visit: Yes Status: Acute Assessment & Plan: -anion gap 15.5- trend - IVF NS @ 100ml/hr- stopped IP - 2 L NS IVF gave in ER- 3rd bag hung [employer] and stopped 09/19 - Anion gap 15.8 - sodium bicarb gtt should help Code(s): E86.0 - DEHYDRATION (8) Metabolic acidosis Current Visit: Yes Status: Acute Assessment & Plan: - Co2 18 - IVF - 2:2 dehydration 09/19 - CO2 13 - sodium bicarb gtt Code(s): E87.20 - ACIDOSIS, UNSPECIFIED (9) CHF (congestive heart failure) Current Visit: Yes Status: Chronic Assessment & Plan: - BNP 726 - CXR does not show acute exacerbation - Tele - Hold meds for now d/t hypotension- except entresto Code(s): I50.9 - HEART FAILURE, UNSPECIFIED Code(s): I50.9 - HEART FAILURE, UNSPECIFIED (10) Diarrhea Current Visit: Yes Status: Acute Assessment & Plan: - Pt states he has had diarrhea- staff states he has not. - C-diff - Probiotics VTE: Xarelto PPI: Protonix Next of KIN: Spouse Ruthann [phone] D/C plan: 2-3 days Code status: Full Code(s): R19.7 - DIARRHEA, UNSPECIFIED
[2024-09-19] MEDS: Acidophilus TABLET PO SCH (13:33)
[2024-09-19] MEDS ORDERED: Cathflo Activase 2 MG IV ONE (13:49)
[2024-09-19] MEDS: TYLENOL 325 MG PO PRN (21:28)
[2024-09-20 03:18] VITALS: TEMP 98
[2024-09-20 05:07] VITALS: O2SAT 97
[2024-09-20 06:22] LABS: Hematocrit 41.5 % (40.1-51.0); Hemoglobin 14.3 g/dL (13.7-17.5); Mean Cell Volume 89.1 fL (79.0-92.2); Mean Corpuscular Hemoglobin 30.7 pg (25.7-32.2); Mean Corpuscular Hgb Concent. 34.5 g/dL (32.3-36.5); Mean Platelet Volume 9.4 fL (9.4-12.4); Platelet Count 298 x10^3/uL (163-337); Red Blood Count 4.66 x10^6/uL (4.63-6.08); Red Cell Distribution Width 12.4 % (11.6-14.4); White Blood Count 15.9 x10^3/uL (4.23-9.07)
[2024-09-20 06:50] LABS: ANION GAP 13.3 MEQ/L (5-15); BILIRUBIN,TOTAL 0.6 mg/dL (0.2-1.3); Calcium 8.2 mg/dL (8.4-10.2); Creatinine 1 0.9 mg/dL (0.66-1.25); EST GLOMERULAR FILTRATION RATE 90.7 ML/MIN; Potassium 4.8 mmol/L (3.5-5.1); Total Protein 5.7 g/dL (6.3-8.2)
[2024-09-20 08:11] VITALS: BP 100/63; PULSE 113; RESP 21
[2024-09-20] MEDS: Vibramycin 100 MG PO SCH (10:37)
[2024-09-20] MEDS: CEFTIN 500 MG PO SCH (10:37)
[2024-09-20] MEDS: DELTASONE 20 MG PO SCH (10:37)
--- NOTE | 2024-09-20 11:08 | PCM.DS ---
Discharge Summary Date of Admission: 09/18/24 16:37 Date of Discharge: 09/20/24 Admitting Physician: JOSEFA JOHNSON MD Primary Care Provider: MYKE GONZALEZ MD Allergies Allergies No Known Drug Allergies Allergy (Unverified 09/18/24 12:07) Hospital Summary - Hospital Course Hospital Course: 09/18/24 is a 74 year old male with pmhx of CHF, COPD, HTN, CAD, arrhythmia, and daily smoker. Patient arrives by private vehicle from the patient's primary care office, Dr. Gonzalez. Per Dr. Gonzalez, the patient was diagnosed as an outpatient with influenza A. However, the patient wanted to go home and over the last week or so he has not been eating well. He is becoming more weak. He is not drinking well. He had low blood pressure at the doctor's office and complains of shortness of breath. He does not have chest pain or abdominal pain. 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 Patient arrives to the emergency department with a room air oxygen saturation level of 96 to 97% and a blood pressure of 85/59. Bp increasingly worsened in ER and 2LNS gave without much improvement. On the IP unit pt remains hypotensive. IVF stopped d/t significant heart hx?CF. Pt becoming increasingly SOB. Levophed gtt started. CXR shows pneumonia. WBC 18.4, anion gap 15.5, Co2 18. IV antibiotics, duonebs, advair, steriods, started. Lungs sounds are clear but diminished. Liver enzymes elevated. K+ elevated at 5.5 in ER. Rechecked IP. Pt meets sepsis criteria. 09/19/24 Pt resting in bed. He remains on Levophed this morning. CO2 13- bicarb gtt started. Continue IV antibiotics, duonebs, advair, steriods for pneumonia. He is RA 96%. BC X2 pending. Advair d/c'd last night as pt wants to use his home inhaler of Trelegy- to bring in to use. Pt denies CP, abd. pain, N/V. He states he has had diarrhea and probiotics started. 09/20 Pt sitting up in bed. He wants his IV out and wants to D/C today. Labs overall improved. WBC 15.9. Will continue OP antibiotics and steroids. Will need OP f/u of LFT's. He is breathing and feeling better. Metabolic acidosis resolved. - Vitals & Intake/Output Vital Signs: Vital Signs Temperature 98 F 09/20/24 03:13 Pulse Rate 113 H 09/20/24 08:01 Respiratory Rate 21 09/20/24 08:01 Blood Pressure 100/63 09/20/24 08:01 O2 Sat by Pulse Oximetry 97 09/20/24 06:54 Intake & Output: Intake & Output 09/17/24 09/18/24 09/19/24 09/20/24 11:59 11:59 11:59 11:59 Intake Total 1513 1390 Output Total 475 700 Balance 1038 690 Weight 92.4 kg - Lab Result Diagrams: 09/20/24 06:15 09/20/24 06:15 Lab Results-Last 24 Hrs: Lab Results-Last 24 Hours 09/20/24 09/20/24 Range/Units 06:15 06:15 WBC 15.9 H (4.23-9.07) x10^3/uL RBC 4.66 (4.63-6.08) x10^6/uL Hgb 14.3 (13.7-17.5) g/dL Hct 41.5 (40.1-51.0) % MCV 89.1 (79.0-92.2) fL MCH 30.7 (25.7-32.2) pg MCHC 34.5 (32.3-36.5) g/dL RDW 12.4 (11.6-14.4) % Plt Count 298 (163-337) x10^3/uL MPV 9.4 (9.4-12.4) fL Sodium 133 L (135-145) mmol/L Potassium 4.8 (3.5-5.1) mmol/L Chloride 99 (98-107) mmol/L Carbon Dioxide 26 (22-30) mmol/L Anion Gap 13.3 (5-15) MEQ/L BUN 25 H (9-20) mg/dL Creatinine 0.90 (0.66-1.25) mg/dL Estimated GFR 90.7 ML/MIN Glucose 201 H (74-106) mg/dL Calcium 8.2 L (8.4-10.2) mg/dL Total Bilirubin 0.60 (0.2-1.3) mg/dL AST 104 H (17-59) U/L ALT 203 H (0-50) U/L Alkaline Phosphatase 60 (38-126) U/L Serum Total Protein 5.7 L (6.3-8.2) g/dL Albumin 3.0 L (3.5-5.0) g/dL Micro Results-Entire Visit: Microbiology 09/18/24 12:46 Blood Culture - Preliminary Blood 09/18/24 12:58 Blood Culture - Preliminary Blood - Radiology Exams Ordered Rad Exams-Entire Visit: Radiology Procedures Category Date Time Status CHEST 1 VIEW (PORTABLE) Stat Exams 09/18/24 12:23 Completed - Procedures and Test Procedures and Tests throughout Hospitalization: Therapy Orders & Screens 09/18/24 16:48 EKG REPEAT IN AM Comment: 09/18/24 17:23 RT Screen per Nursing Assess ONCE Comment: Protocol Order Physician Instructions: Greater than 3 points order RT Admission Screen Reason For Exam: Triggered on Admission Diagnosis: pneumonia, flu A Diagnosis: pneumonia, flu A Pneumonia: Yes Home O2: No Asthma: No CHF: Yes Home CPAP/BIPAP: Yes Home Nebs/MDI: Yes Total Points: 16 ST Screen per Nursing Assess ONCE Comment: Protocol Order Physician Instructions: Greater than [address] Admission Screening Reason For Exam: Triggered on Admission Diagnosis: pneumonia, flu A CVA/Dysphagia/Aphasia: No Cognitive Deficits: No Dehydration/Nutrition Deficit: Yes Reflux: No Oral-Motor Difficulties: No Pneumonia: Yes [facility] Resident: No Total Points: 10 09/19/24 07:00 Respiratory Therapy Assessment DAILY Comment: Diagnosis: pneumonia, flu A 09/19/24 10:39 Respiratory MDI UD Comment: Diagnosis: pneumonia, flu A Discharge Exam General Appearance: no apparent distress, alert, obese Neurologic Exam: alert, oriented x 3, cooperative, normal mood/affect, nml cerebellar function, sensation nml, No motor deficits Eye Exam: PERRL, EOMI, eyes nml inspection Ears, Nose, Throat Exam: normal ENT inspection, pharynx normal, moist mucous membranes Neck Exam: normal inspection, non-tender, supple, full range of motion Respiratory Exam: normal breath sounds, lungs clear, No respiratory distress Cardiovascular Exam: regular rate/rhythm, normal heart sounds Gastrointestinal/Abdomen Exam: soft, No tenderness, No mass Male Genitalia Exam: deferred Rectal Exam: deferred Back Exam: normal inspection, normal range of motion, No CVA tenderness, No vertebral tenderness Extremity Exam: normal inspection, normal range of motion Skin Exam: normal color, warm, dry Final Diagnosis/Problem List - Final Discharge Diagnosis/Problem (1) Sepsis Current Visit: Yes Status: Acute (2) Pneumonia Current Visit: Yes Status: Acute Code(s): J18.9 - PNEUMONIA, UNSPECIFIED ORGANISM (3) Hypotension Current Visit: Yes Status: Acute Code(s): I95.9 - HYPOTENSION, UNSPECIFIED (4) Influenza A H1N1 infection Current Visit: Yes Status: Acute Code(s): J10.1 - FLU DUE TO OTH IDENT INFLUENZA VIRUS W OTH RESP MANIFEST (5) Transaminitis Current Visit: Yes Status: Acute Code(s): R74.01 - ELEVATION OF LEVELS OF LIVER TRANSAMINASE LEVELS (6) Hyperkalemia Current Visit: Yes Status: Acute Code(s): E87.5 - HYPERKALEMIA (7) Dehydration Current Visit: Yes Status: Acute Code(s): E86.0 - DEHYDRATION (8) Metabolic acidosis Current Visit: Yes Status: Acute Code(s): E87.20 - ACIDOSIS, UNSPECIFIED (9) CHF (congestive heart failure) Current Visit: Yes Status: Chronic Code(s): I50.9 - HEART FAILURE, UNSPECIFIED (10) Diarrhea Current Visit: Yes Status: Acute Assessment & Plan: (1) Sepsis Current Visit: Yes Status: Acute Assessment & Plan: - RR> 20, HR > 90, WBC> 12, PCO2 < 32 - 2lNS gave in ER- Pt has CHF hx - lactate acid 1.6 - hypotension - + pneumonia and Flu A - BC X2 pending - Levophed Gtt - Tele - ICU (2) Pneumonia Current Visit: Yes Status: Acute Assessment & Plan: - CXR: Portable chest hyperinflated with right infrahilar hazy interstitial alveolar opacities, possible pneumonitis/pneumonia. Remaining heart and left lung unremarkable. Bony thorax intact with osteopenia. - Ceftriaxone started in ER - Ceftriaxone, azithromycin, duonebs, advair, steroids - CBC, CMP reviewed - BC x2 - O2 98% - WBC 18.4 2/1 - WBC 15.3- improved - CBC, CMP reviewed - Advair d/c'd and to bring in Trelegy inhaler - RA 96% 2/2 - CBC, CMP reviewed - RA - WBC 15.9 - Continue antbx and steroids OP PO Code(s): J18.9 - PNEUMONIA, UNSPECIFIED ORGANISM (3) Hypotension Current Visit: Yes Status: Acute Assessment & Plan: - BP remains low on admission - ICU tele - Pt now on 3rd bag of IVF- watch for fluid overload as he has CHF. - fluids stopped - Home BP meds held. - 2:2 sepsis from pneumonia - Persistent hypotension despite IV fluids - started Levophed gtt 2/1 - Continue Levophed gtt - levophed stopped 2/2 - BP stable- resolved Code(s): I95.9 - HYPOTENSION, UNSPECIFIED (4) Influenza A H1N1 infection Current Visit: Yes Status: Acute Assessment & Plan: - tamiflu not ordered as it has been over 1 week now with sxs Code(s): J10.1 - FLU DUE TO OTH IDENT INFLUENZA VIRUS W OTH RESP MANIFEST (5) Transaminitis Current Visit: Yes Status: Acute Assessment & Plan: - AST 178, ALT 209 - IVF- stop - Likely 2:2 CHF 2/1 - AST 109, ALT 197- improved 2/2 -AST 104, ALT 203 - F/U with PCP OP for US if labs do not improve Code(s): R74.01 - ELEVATION OF LEVELS OF LIVER TRANSAMINASE LEVELS (6) Hyperkalemia Current Visit: Yes Status: Acute Assessment & Plan: - K+ 5.5 in ER - IVF gave in ER- stopped - recheck IP - 4.9 trending down - tele - oral home dose of K+ held / - resolved Code(s): E87.5 - HYPERKALEMIA (7) Dehydration Current Visit: Yes Status: Acute Assessment & Plan: -anion gap 15.5- trend - IVF NS @ 100ml/hr- stopped IP - 2 L NS IVF gave in ER- 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/ - Anion gap 15.8 - sodium bicarb gtt should help 2/2 - resolved - IVF stopped Code(s): E86.0 - DEHYDRATION (8) Metabolic acidosis Current Visit: Yes Status: Acute Assessment & Plan: - Co2 18 - IVF - 2:2 dehydration 2/1 - CO2 13 - sodium bicarb gtt 2/2 - resolved Code(s): E87.20 - ACIDOSIS, UNSPECIFIED (9) CHF (congestive heart failure) Current Visit: Yes Status: Chronic Assessment & Plan: - BNP 726 - CXR does not show acute exacerbation - Tele - Hold meds for now d/t hypotension- except entresto Code(s): I50.9 - HEART FAILURE, UNSPECIFIED (10) Diarrhea Current Visit: Yes Status: Acute Assessment & Plan: - Pt states he has had diarrhea- staff states he has not. - C-diff - Probiotics 2/2 - resolved Code(s): R19.7 - DIARRHEA, UNSPECIFIED - Discharge Discharge Date: 09/20/24 Disposition: Home, Self-Care Condition: Fair Prescriptions: New Prednisone 20 mg [Deltasone 20 mg] 20 mg PO BID 5 Days #10 tablet Doxycycline Hyclate 100 mg [Vibramycin 100 MG] 100 mg PO BID 5 Days #10 tablet Continue Spironolactone 25 mg [Aldactone 25 MG] 25 mg PO DAILY Atorvastatin Calcium 20 mg PO DAILY Potassium Chloride [Klor-Con 10] 20 meq BID Sacubitril/Valsartan [Entresto 24 mg-26 mg Tablet] 1 ea BID Fluticasone/Umeclidin/Vilanter [Trelegy Ellipta 100-62.5-25] 1 each IH DAILY Carvedilol [Coreg ] 6.25 mg PO BID Rivaroxaban [Xarelto] 20 mg PO DAILY Follow up with: MYKE GONZALEZ MD [Primary Care Provider] -
== END 2024-09-20 11:29 | disposition home or self-care (01) | DRG 871 ==
LOC: ED 11:50 → ICU 16:37
PROVIDERS: ADMIT Internal Medicine; ATTEND Internal Medicine
DX: A41.9 Sepsis, unspecified organism (principal); J18.9 Pneumonia, unspecified organism; E87.20 Acidosis, unspecified; I95.9 Hypotension, unspecified; J10.1 Influenza due to other identified influenza virus with other respiratory manifestations; R74.01 Elevation of levels of liver transaminase levels; E87.5 Hyperkalemia; E86.0 Dehydration; I11.0 Hypertensive heart disease with heart failure; I50.9 Heart failure, unspecified; R19.7 Diarrhea, unspecified; I25.10 Atherosclerotic heart disease of native coronary artery without angina pectoris; F17.200 Nicotine dependence, unspecified, uncomplicated; Z79.899 Other long term (current) drug therapy; Z79.01 Long term (current) use of anticoagulants
CPT/HCPCS: 0241U; 36415; 71045; 80053; 83605; 83735; 83880; 84132; 84484; 85025; 85027; 86308; 87040; 93005; 94640; 94760; 96360; 96361; 96365; 99285; 99291; J0456; J0696; J2919; Q3014; A9270-GY

== ENCOUNTER 2024-09-27 15:40 | Emergency (ER) | payer MEDICARE ==
[2024-09-27 15:59] VITALS: TEMP 97.4; O2SAT 100
--- NOTE | 2024-09-27 16:30 | ERPHSYRPT ---
- History of Present Illness Time Seen by Provider: 09/27/24 16:24 Source: patient, family Exam Limitations: no limitations Patient Subjective Stated Complaint: C/O hypotension Triage Nursing Assessment: Patient arrived by EMS. He is alert and oriented but hard of hearing. Patient stating upon arrival to ER that he just wants to go home and stay home and to call hospice for him. Family at bedside and state that they agree with that plan of care. Physician History: Patient is 74-year-old male with significant past medical history of COPD and end-stage heart disease found to have a low blood pressure at home so family sent him to the emergency room. When family came to the emergency room their main concern is that they want patient to have only comfort measures and they want hospice care initialize. Patient denies any symptoms in the emergency room patient blood pressure is 96/61. 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 unkno wn Associated Symptoms: denies symptoms Allergies/Adverse Reactions: No Known Drug Allergies Allergy (Verified 09/27/24 15:48) Home Medications: Atorvastatin Calcium 20 mg PO DAILY 09/18/24 [History] Carvedilol [Coreg ] 6.25 mg PO BID 09/18/24 [History] Potassium Chloride [Klor-Con 10] 20 meq BID 09/18/24 [History] Rivaroxaban [Xarelto] 20 mg PO DAILY 09/18/24 [History] Sacubitril/Valsartan [Entresto 24 mg-26 mg Tablet] 1 ea PO BID 09/18/24 [History] Spironolactone 25 mg [Aldactone 25 MG] 25 mg PO DAILY 09/18/24 [History] Hx Tetanus, Diphtheria Vaccination/Date Given: Yes Hx Influenza Vaccination/Date Given: Yes Hx Pneumococcal Vaccination/Date Given: Yes Immunizations Up to Date: Yes Travel Risk - International Travel Have you traveled outside of the country in past 3 weeks: No - Emerging Infectious Disease Are you exhibiting symptoms associated with any current EIDs: No Symptoms: Headaches/Body Aches/ Comment: positive flu - Review of Systems Constitutional: No Fever, No Chills Eyes: No Symptoms Ears, Nose, & Throat: No Symptoms Respiratory: No Cough, No Dyspnea Cardiac: No Chest Pain, No Edema, No Syncope Abdominal/Gastrointestinal: No Abdominal Pain, No Nausea, No Vomiting, No Diarrhea Genitourinary Symptoms: No Dysuria Musculoskeletal: No Back Pain, No Neck Pain Skin: No Rash Neurological: No Dizziness, No Focal Weakness, No Sensory Changes Psychological: No Symptoms Endocrine: No Symptoms All Other Systems: Reviewed and Negative - Past Medical History Pertinent Past Medical History: Yes Neurological History: No Pertinent History ENT History: No Pertinent History Cardiac History: Arrhythmia, Congestive Heart Failure, Coronary Artery Disease, Hypertension Respiratory History: CHF, COPD, Pneumonia Endocrine Medical History: No Pertinent History Musculoskeletal History: No Pertinent History GI Medical History: Diverticulitis, Other Psycho-Social History: No Pertinent History Male Reproductive Disorders: No Pertinent History Other Medical History: A-fib - Past Surgical History Past Surgical History: Yes Neuro Surgical History: No Pertinent History Cardiac: No Pertinent History Respiratory: No Pertinent History Gastrointestinal: Other Genitourinary: No Pertinent History Musculoskeletal: Orthopedic Surgery Male Surgical History: No Pertinent History Other Surgical History: colon bypass ,elbow surg ,eye surg Significant Family History: heart disease - Social History Smoking Status: Current every day smoker Exposure to second hand smoke: Yes Drug Use: none - Social Determinants of Health Will the patient participate in the screening: Yes Do you worry about a steady place to live?: No Do you have any problems with any of the following?: No known problems In the past 12 months,have you had to go without utilities?: No Transportation Issues: No Has anyone in your support network made you feel unsafe?: No Have you or anyone in your house had to go without enough: No Comment: Requesting Hospice Services - Nursing Vital Signs Nursing Vital Signs: Initial Vital Signs Temperature 97.4 F 09/27/24 15:44 Pulse Rate 85 09/27/24 15:44 Respiratory Rate 22 09/27/24 15:44 Blood Pressure 93/69 09/27/24 15:44 O2 Sat by Pulse Oximetry 100 09/27/24 15:44 Pain Scale Pain Intensity 0 - Physical Exam General Appearance: no apparent distress, alert Eye Exam: PERRL/EOMI, eyes nml inspection Ears, Nose, Throat Exam: normal ENT inspection, TMs normal, pharynx normal, moist mucous membranes Neck Exam: normal inspection, non-tender, supple, full range of motion Respiratory Exam: normal breath sounds, lungs clear, No respiratory distress Cardiovascular Exam: irregular, capillary refill >3 sec, edema Gastrointestinal/Abdomen Exam: soft, normal bowel sounds, No tenderness, No mass Back Exam: normal inspection, normal range of motion, No CVA tenderness, No vertebral tenderness Extremity Exam: normal inspection, normal range of motion, pelvis stable Neurologic Exam: alert, oriented x 3, cooperative, normal mood/affect, nml cerebellar function, nml station & gait, sensation nml, No motor deficits Skin Exam: normal color, warm, dry, No rash Lymphatic Exam: No adenopathy SpO2: 100 - Course Nursing assessment & vital signs reviewed: Yes - Progress Progress: unchanged Medical Desision Making - Independent Historian Additional History obtained from: Family - Diagnostic Testing Diagnostic test were ordered, analyzed, and reviewed by me: No - Risk of complications The pt has a high risk of morbidity or mortality based on: Decision not to resucitate (Hospice care) - Departure Departure Disposition: Home (With [facility]) Clinical Impression: CHF (congestive heart failure) Qualifiers: Heart failure type: combined systolic and diastolic Heart failure chronicity: chronic Qualified Code(s): I50.42 - Chronic combined systolic (congestive) and diastolic (congestive) heart failure COPD (chronic obstructive pulmonary disease) Qualifiers: COPD type: unspecified COPD Qualified Code(s): J44.9 - Chronic obstructive pulmonary disease, unspecified Condition: Stable Critical Care Time: No Referrals: [facility] [Primary Care Provider] - Follow up/PCP as directed Instructions: Heart Failure, Chronic Obstructive Pulmonary Disease, [place], Palliative care, Medical care during advanced illness, Getting the Care You Need
[2024-09-27 16:56] VITALS: BP 86/70; PULSE 78; RESP 18
== END 2024-09-27 16:50 | disposition home or self-care (01) ==
LOC: ED 15:40
DX: I11.0 Hypertensive heart disease with heart failure (principal); I50.42 Chronic combined systolic (congestive) and diastolic (congestive) heart failure; J44.9 Chronic obstructive pulmonary disease, unspecified; I95.9 Hypotension, unspecified; Z79.01 Long term (current) use of anticoagulants; Z79.899 Other long term (current) drug therapy; Z72.0 Tobacco use
CPT/HCPCS: 99281